=== PATIENT | female | born 1985 | race Caucasian/White ===

== ENCOUNTER → 2020-09-24 14:27 | Outpatient (CLI) | payer BC, SELFPAY ==
--- NOTE | ~2020-09-24 | US_ITS ---
EXAMINATION: US thyroid EXAM DATE: 09/24/2020 14:45 INDICATION: Goiter . TECHNIQUE: Multiple grayscale and Doppler images of the thyroid were obtained (by a technologist who performed the scan) and subsequently reviewed. Individual nodules and recommendations may be reporte d in accordance with TI-RADS system as designated by the 2017 ACR White Paper TI-RADS committee. The re is no prior study for comparison. FINDINGS: The right thyroid lobe measures 5.6 x 1.6 x 1.6 cm, the left measuring 3.8 x 1.2 x 1.5 cm, relatively homogeneous thyroid echogenicity with several small thyroid nodules. Largest definite thyroid nodule measures 1.1 x 0.5 x 0.8 cm and the right thyroid lobe midpole, solid (2 points), hypoechoic (2 points), wider than tall, smooth margin, without echogenic foci, category TR4 for this nodule. IMPRESSION: Mildly enlarged right thyroid lobe, with small nodule. Consider one-year follow-up thyroi d ultrasound. Reviewed, dictated and finalized at location A. OL ATHLETIC DIRECTOR IMPRESSION: Mildly enlarged right thyroid lobe, with small nodule. Consider one -year follow-up thyroid ultrasound.
== END ==
PROVIDERS: Visit Provider Internal Medicine Endocrinology, Diabetes & Metabolism
DX: E04.9 Nontoxic goiter, unspecified (principal)
CPT/HCPCS: 76536

== ENCOUNTER 2022-02-11 15:48 | Emergency (ER) | payer BC, SELFPAY ==
[2022-02-11 15:51] VITALS: BP 109/74; PULSE 106; RESP 18; TEMP 37.3; O2SAT 100
--- NOTE | 2022-02-11 17:34 | ECG_ITS ---
Measurements Intervals [place] Rate: 105 P: 67 MI: 168 QRS: 23 QRSD: 77 T: -8 QT: 315 QTc: 417 Interpretive Statements SINUS TACHYCARDIA POSSIBLE LEFT ATRIAL ENLARGEMENT [-0.1mV P WAVE IN V1/V2] NONSPECIFIC ST & T-WAVE ABNORMALITY ABNORMAL RHYTHM ECG NO PREVIOUS ECG AVAILABLE FOR COMPARISON Electronically Signed On 02-12-2022 11:21:22 CDT by Yaakov Boggs M.D.
--- NOTE | 2022-02-11 17:35 | ED.ALLEREA ---
HPI - Allergic Reaction General Chief complaint: Allergic Reaction Stated complaint: med reaction? Time Seen by Provider: 02/11/22 17:34 History of Present Illness HPI narrative: 37-year-old female presents the emergency room for evaluation of a possible allergic reaction to fertility medication she is taking. Patient states 2 days ago she was taking clomiphene, and yesterday started experiencing flushing, abdominal bloating, nausea, body aches, fever, weakness, headache, chest discomfort with palpitations, and shortness of breath. Patient states that she had a maximum temperature of 104. Patient states that she has not contacted her hand molder and caster regarding the side effects of the medication. Patient states her symptoms are less worse today but still remain. Related Data Allergies Allergy/AdvReac Type Severity Reaction Status Date / Time Penicillins Allergy Mild Rash Unverified 09/23/20 09:04 Review of Systems Review of Systems: CONSTITUTIONAL: Reports fever, chills, sweats, body aches EYES: Denies visual changes, redness, or discharge. ENT: Denies rhinorrhea, congestion, sore throat, or otalgia. CARDIOVASCULAR: Reports chest pain RESPIRATORY: Reports shortness of breath GASTROINTESTINAL: Reports abdominal cramping and nausea GENITOURINARY: Denies dysuria or hematuria. SKIN: Reports flushing skin MUSCULOSKELETAL: Denies back pain, joint pain, or myalgia. NEUROLOGIC: Reports headache PSYCHIATRIC: Denies anxiety or depression. Exam Narrative: GENERAL: Well-appearing, well-nourished, and in no acute distress. HEAD: Normocephalic, atraumatic. EYES: PERRLA and EOMI. ENT: Nares clear, no rhinorrhea or epistaxis. Mucous membranes moist. Oropharynx without tonsillar hypertrophy exudate or other lesions. CHEST: Clear to auscultation. No respiratory distress. No wheezes rales or rhonchi HEART: Regular rate and rhythm. No murmur heard. Normal peripheral pulses. ABDOMEN: Soft, nontender, nondistended, normal active bowel sounds. EXTREMITIES: Normal range of motion. No edema. SKIN: Warm, dry, no rash. NEURO: No focal deficits. Alert and oriented x3. PSYCH: Normal mood and affect. Course Vital Signs Vital signs: Vital Signs Temperature 37.3 C 02/11/22 15:51 Pulse Rate 106 H 02/11/22 15:51 Respiratory Rate 18 02/11/22 15:51 Blood Pressure 109/74 02/11/22 15:51 Pulse Oximetry 100 02/11/22 15:51 Temperature 37.3 C 02/11/22 15:51 Pulse Rate 106 H 02/11/22 15:51 Respiratory Rate 18 02/11/22 15:51 Blood Pressure 109/74 02/11/22 15:51 Pulse Oximetry 100 02/11/22 15:51 MDM - Allergic Reaction MDM Narrative Medical decision making narrative: 37-year-old female presented emergency room for evaluation of a possible adverse reaction to fertility medication patient states that she has been experiencing headache, fever, body aches, occasional chest pain with shortness of breath, bloating, nausea. Discussed with patient that her symptoms were likely caused by the fertility medication. Her EKG showed normal sinus rhythm with no acute changes. Recommended to patient that she just treat her symptoms. Differential Diagnosis Differential diagnosis: Likely allergic reaction and adverse reaction to drug ECG Data EKG #1: ECG completion date: 02/11/22 ECG completion time: 17:52 normal rate, sinus rhythm, normal QRS and no acute changes Discharge Plan Discharge Clinical Impression: Adverse reaction to drug, Nausea, Atypical chest pain Patient Disposition: Home, Self-Care Condition: Stable Instructions: Antibiotic Form Additional Instructions: Follow-up with your hand molder and caster on Monday. Take Zofran as indicated. Recommend taking Tylenol and ibuprofen for headaches, fever, and body aches. Prescriptions: New ondansetron 4 mg tablet,disintegrating 4 mg PO Q8H Qty: 10 RF: 0 Follow-up/Referrals: DERRICK,KEYSHAWN DON [Primary Care Provider] - Time of Disposition: 1
== END 2022-02-11 17:58 | disposition home or self-care (01) ==
LOC: ANHED 17:54
PROVIDERS: Emergency Provider Nurse Practitioner Family; PCP Nurse Practitioner Family
DX: R11.0 Nausea (principal); R07.89 Other chest pain; T38.5X5A Adverse effect of other estrogens and progestogens, initial encounter; R00.0 Tachycardia, unspecified; R94.31 Abnormal electrocardiogram [ECG] [EKG]
CPT/HCPCS: 93005; 99283

== ENCOUNTER 2022-02-16 11:47 | Outpatient (CLI) | payer BC, SELFPAY ==
--- NOTE | ~2022-02-16 | CT_ITS ---
EXAMINATION: CT abdomen pelvis w con DATE: 02/16/2022 12:40 INDICATION: Right lower quadrant abdominal pain. TECHNIQUE: Computed tomography (CT) of the abdomen and pelvis was performed with 100 mL Omnipaque 350 intravenous contrast. Automated exposure control and iterative reconstruction technique were employe d. The dose-length product was 414.84 mGy-cm. COMPARISON: Abdomen ultrasound 01/05/2005 FINDINGS: The visualized portions of the lung bases demonstrated mild atelectasis. No pleural effusio n. The heart size is normal. No pericardial effusion. There is a 9 mm cyst in the liver. The gallblad ayanna, spleen, pancreas, adrenal glands, and right kidney are normal. There are cysts in right kidney m easuring up to 12 mm. There are no dilated loops of bowel. The appendix is not visualized. There is a 3.5 cm cyst with rim hyper enhancement in right ovary, consistent with a corpus luteum cyst. There i s pelvic ascites measuring greater than simple fluid in attenuation. There are no pathologically enla rged lymph nodes. The bones are unremarkable. IMPRESSION: 1. 3.5 cm corpus luteum cyst in right ovary. 2. Small volume of pelvic ascites measuring greater than simple fluid in attenuation, which may be he moperitoneum from cyst rupture. Reviewed, dictated and finalized at location A. IMPRESSION: 1. 3.5 cm corpus luteum cyst in right ovary. 2. Small volume of pelvic ascites measuring greater than simple fluid in attenu ation, which may be hemoperitoneum from cyst rupture.
[2022-02-16 13:53] LABS: Hematocrit 39.1 % (37.0-47.0); Hemoglobin 12.2 g/dL (12.0-15.0); Mean Corpuscular HGB Conc 31.2 g/dl (32-36); Mean Corpuscular Hemoglobin 28.1 pg (26-34); Mean Corpuscular Volume 90.1 fl (80-100); Mean Platelet Volume 9.6 fl (7.4-10.4); Platelet Count Result 404 k/mm3 (150-375); Red Blood Count 4.34 M/mm3 (4.2-5.4); Red Cell Distribution Width 12.7 % (11.5-14.5); White Blood Count 24.7 K/mm3 (4.5-10.0)
[2022-02-16 13:55] LABS: Add Urine Microscopic? NO; Appearance Urine Clear (Clear); Bilirubin Urine Negative (Negative); Blood Urine Negative (Negative); Color Urine Straw (Yellow); Glucose Urine UA Negative (Negative); Ketones Urine Negative (Negative); Leukocyte Esterase Ur Negative LEU/UL (Negative); Nitrate Urine Negative (Negative); Protein Urine Negative (Negative); Urobilinogen Urine Negative mg/dL (<2.0)
[2022-02-16 14:02] LABS: Specific Grav Ur 1.058 (1.001-1.035)
[2022-02-16 14:08] LABS: Alanine Aminotransferase 26 U/L (4-35); Albumin Level 4.2 g/dL (3.5-5.1); Alkaline Phosphatase 141 U/L (38-126); Anion Gap 11 mmol/L (8-16); Aspartate Amino Transferase 28 U/L (14-36); Bilirubin,Total 0.3 mg/dL (0.2-1.3); Blood Urea Nitrogen 9 mg/dL (7-17); Calcium 8.7 mg/dL (8.4-10.2); Carbon Dioxide 25 mmol/L (22-30); Chloride 100 mmol/L (98-107); Estimated Glomerular Filt Rate > 60; Glucose 98 mg/dL (65-110); Potassium 3.7 mmol/L (3.4-5.0); Sodium 136 mmol/L (137-145)
[2022-02-16 14:27] LABS: Band Neutrophils Percent 2 % (0-6); Eosinophils Absolute Manual 0.24 K/mm3 (0.02-0.5); Eosinophils Percent Manual 1 % (0-4); Lymphocytes Absolute Manual 2.96 K/mm3 (1.1-4.5); Monocytes Absolute Manual 1.72 K/mm3 (0.1-0.90); Monocytes Percent Manual 7 % (3-9); Neutrophils Absolute Manual 19.76 K/mm3 (1.7-7.2); Neutrophils Percent Manual 78 % (46-73); Platelet Estimate Increased (Adequate); Total Cells Counted 100
[2022-02-16 14:28] LABS: Hypochromasia 1+ (NORMAL)
[2022-02-18 18:18] LABS: Lyme Disease Ab (IgM), Blot Negative (Negative); Lyme Disease Ab(IgG), Blot Negative (Negative)
== END 2022-02-16 11:48 | disposition home or self-care (01) ==
PROVIDERS: PCP Nurse Practitioner Family; Visit Provider Registered Nurse
DX: R10.31 Right lower quadrant pain (principal); N83.201 Unspecified ovarian cyst, right side; R18.8 Other ascites
CPT/HCPCS: 36415; 74177; 80053; 81003; 85025; 86617; Q9967

== ENCOUNTER 2022-02-17 20:01 | Observation (INO) | payer BC, SELFPAY ==
[2022-02-17 20:35] VITALS: BMI 27.2
[2022-02-17 20:45] VITALS: BP 117/71; PULSE 102; RESP 16; TEMP 36.8; O2SAT 100
[2022-02-17] MEDS: LACTATED RINGERS 1,000 ML 125 ML IV CONT (21:20)
--- NOTE | 2022-02-17 21:23 | ADMGEN ---
This patient, Fabienne Jones, was admitted to Medical Room 347-. Patient/family oriented to hospital policies and general routines including ID bracelet, bed and alarms, visiting hours, pain management, procedures, bathroom and other care routines, personal items, smoking policy, room service/diet, and visiting hours. Information on how to activate the Rapid Response Team has been discussed. Patient/Family are encouraged to report perceived risks to care and to ask questions if they do not understand what they are told or what they should do.
[2022-02-18 04:52] VITALS: BP 112/63; PULSE 95; RESP 16; TEMP 36.8; O2SAT 99
[2022-02-18] MEDS: LACTATED RINGERS 1,000 ML 125 ML IV CONT (05:15)
[2022-02-18] MEDS: metroNIDAZOLE 500 MG/ISO 100ML 500 MG/100 ML BAG 100 MG IVPB (05:15)
[2022-02-18] MEDS: ACETAMINOPHEN 500 MG TABLET 1000 MG PO (05:21)
--- NOTE | 2022-02-18 07:47 | PM.IMHP ---
H&P: HPI History of Present Illness Date/Time: 02/18/22 07:47 Chief Complaint: right ovarian cyst Narrative: Fabienne is a 37yo who was transferred from [place] with hemorrhagic right ovarian cyst. She reports 8 days ago started with generalized abdominal discomfort and intermittent fevers. would get better and worse in cycles over the last week. Had taken first 2 doses of clomid when it started so thought it was related to that. A lot of nausea, was not eating or drinking. No vomiting, some diarrhea. Fevers continued (subjectively, does not have thermometer). She went to ED yesterday with continued pain and fevers. Pain feels like menstrual cramps. She had fever 102.[address] [place] [address] there showed small hemoperitoneum. US showed minimal to moderate free fluid in pelvis and 4-5cm hemorrhagic right ovarian cyst. ALso had leukocytosis. She has been on antibiotics here since yesterday. Overnight she did very well. Only took tylenol once for a SILVER. NO vomiting, Is hungry asking for food. Review of Systems Review of Systems: All systems reviewed & are unremarkable except as noted in HPI and below [facility] Family History Family History Grandparent Diabetes mellitus Breast cancer Heart disease Colon cancer Mother Hypertension Social History Social History Smoking status: Never smoker Alcohol intake: never Substance use: never Spiritual care concerns: No Meds Home Medications and Allergies Home Medications Medication Instructions Recorded Confirmed Type ondansetron 4 mg PO Q8H #10 tablet 02/11/22 Rx metformin 500 mg PO BID 02/17/22 02/17/22 History Allergies Allergy/AdvReac Type Severity Reaction Status Date / Time Penicillins Allergy Mild Rash Verified 02/18/22 01:05 Vital Signs Vital Signs - 24 hr 02/17/22 20:45 02/18/22 04:52 Temperature 98.2 F 98.3 F Pulse Rate 102 H 95 Respiratory Rate 16 16 Blood Pressure 117/71 112/63 Pulse Oximetry 100 99 Exam Const: General: no acute distress Resp: Effort & Inspection: normal respiratory effort Auscultation: clear to auscultation bilaterally Cardio: Rate: regular rate Rhythm: regular rhythm GI: GI Palp: Yes Soft to palpation and Yes Other GI palpation findings present (nontender, no rebound or guarding.) Extrem: General: normal to inspection Assessment and Plan Assessment and plan (1) Right ovarian cyst: Code(s): N83.201 - Unspecified ovarian cyst, right side Status: Acute (2) Nausea: Code(s): R11.0 - Nausea Status: Acute (3) Leukocytosis: Code(s): D72.829 - Elevated white blood cell count, unspecified Status: Acute (4) Abdominal pain: Code(s): R10.9 - Unspecified abdominal pain Status: Acute Additional Plan s/p IV antibiotics, though do not suspect TOA based on imaging, clinical presentation. I suspect viral gastroenteritis that has been prevalent with hemorrhagic ovarian cyst at same time. afebrile since admission exam bengin cap IV, gen diet home if tolerates PO precautions given. PT to call today to schedule FU at office for monday or monday. Return to ED for severe pain.
--- NOTE | 2022-02-18 07:59 | P.DS_ITS ---
DS: Admitting Diagnosis Discharge Date 02/18/22 Admitting Diagnosis hemorrhagic right ovarian cyst, leukocytosis, fever DS: Discharge Diagnosis Discharge Diagnosis (1) Abdominal pain: Code(s): R10.9 - Unspecified abdominal pain Status: Acute (2) Leukocytosis: Code(s): D72.829 - Elevated white blood cell count, unspecified Status: Acute (3) Nausea: Code(s): R11.0 - Nausea Status: Acute (4) Right ovarian cyst: Code(s): N83.201 - Unspecified ovarian cyst, right side Status: Acute DS: Summary Hospital Course Reason for hospitalization: right ovarian cyst, pain, leukocytosis Hospital Course: Pt was transferred from [facility] with hemorrhagic right ovarian cyst and pain. She had moderate leukocytosis and one fever. She received antibiotics and never took more than tylenol for her pain. She was NPO overnight in case surgery was necessary, but her abdominal exam remained benign. She was given a PO challenge and DC home in stable condition. Status at Discharge Functional status at discharge: independent ambulation Time Spent with Patient Time attestation: Total time spent providing and/or coordinating discharge services: Time spent: Less than 30 minutes Exam Narrative: NAD abdomen soft and nontender Ext non tender, no edema Neck: Neck: supple and no JVD Thyroid: thyroid normal Resp: Effort & Inspection: normal respiratory effort Cardio: Rate: regular rate Rhythm: regular rhythm GI: GI Palp: Yes Soft to palpation Auscultation: normal bowel sounds Discharge Plan Discharge Attending physician on discharge: Annette Chris Discharging Clinician: Annette Chris Anticipated Discharge Date/Time: 02/18/22 07:57 Patient Disposition: Home, Self-Care Activity: pelvic rest Diet: regular Discharge Instructions: ibuprofen 600mg every 6 hours as needed return to ED for temp >102 or severe pain Follow up Dr. Brady or Dr Chris Monday or Monday. Patient Instructions: Antibiotic Form Stand Alone Forms: General Discharge Information Follow-up/Referrals: Annette Chris MD [Physician] - 1 Week Discharge Medications: Continued metformin 500 mg Tablet 500 mg PO BID RF: 0 ondansetron 4 mg tablet,disintegrating 4 mg PO Q8H Qty: 10 RF: 0 Date of admission: 02/17/22 19:27 Primary Care Provider: MAYRAFLORENCIA Admitting Provider: Mervat Brady Attending physician on admission: Mervat Brady Condition: Stable
[2022-02-18 08:36] LABS: Basophils Absolute Auto 0.1 K/mm3 (0.0-0.1); Basophils Percent Auto 0.4 % (0.2-1.2); Eosinophils Absolute Auto 0.2 K/mm3 (0-0.3); Hematocrit 29.5 % (37.0-47.0); Hemoglobin 9.7 g/dL (12.0-15.0); Immature Granulocyte Absolute 0.54 K/mm3 (0.00-0.031); Immature Granulocyte Percent A 2.6 % (0-0.5); Lymphocytes Absolute Auto 2.06 K/mm3 (0.9-3.2); Lymphocytes Percent Auto 9.9 % (18.3-44.2); Mean Corpuscular HGB Conc 32.9 g/dl (32-36); Mean Corpuscular Hemoglobin 28.2 pg (26-34); Mean Corpuscular Volume 85.8 fl (80-100); Mean Platelet Volume 9.1 fl (7.4-10.4); Monocytes Absolute Auto 1.3 K/mm3 (0.1-0.6); Monocytes Percent Auto 6.4 % (2.6-8.5); Neutrophils Absolute Auto 16.6 K/mm3 (1.3-6.7); Neutrophils Percent Auto 79.7 % (45.5-73.1); Platelet Count Result 390 k/mm3 (150-375); Red Blood Count 3.44 M/mm3 (4.2-5.4); White Blood Count 20.8 K/mm3 (4.5-10.0)
== END 2022-02-18 13:02 | disposition home or self-care (01) ==
PROVIDERS: Admitting Provider Obstetrics & Gynecology; PCP Nurse Practitioner Family; Visit Provider Obstetrics & Gynecology
DX: N83.201 Unspecified ovarian cyst, right side (principal); D72.829 Elevated white blood cell count, unspecified; R11.0 Nausea
CPT/HCPCS: 36415; 85025; 96361; 96365; A9270; G0378; G0379; J7120

== ENCOUNTER 2022-06-24 08:38 | Outpatient (RCR) | payer BC, SELFPAY | END 2022-09-20 23:59 | disposition home or self-care (01) | LOC: ANHLAB 08:38 | PROVIDERS: PCP Nurse Practitioner Family; Visit Provider Obstetrics & Gynecology | DX: Z87.59 Personal history of other complications of pregnancy, childbirth and the puerperium (principal) | CPT/HCPCS: 36415; 84702 ==

== ENCOUNTER 2022-06-25 11:50 | Emergency (ER) | payer BC, SELFPAY ==
[2022-06-25 11:59] VITALS: BP 137/72; PULSE 80; RESP 16; TEMP 36.5; O2SAT 100
--- NOTE | 2022-06-25 12:06 | ED.EXTPRO ---
HPI - Extremity Problem General Chief complaint: Extremity Injury, Upper Stated complaint: Left Two Middle Fingers Pain Time Seen by Provider: 06/25/22 12:07 History of Present Illness HPI Narrative: Fabienne Jackson is a 37-year-old female who is prediabetic comes to [facility] after a fall she is also in early . She fell last night while she was sweeping and fell onto the broom handle and has bruising across the third and fourth finger and they are both swollen she is able to make a fist with difficulty and states it is painful and able to wiggle and do movement without difficulty but she says she has a lot of pain there is no injury to her wrist or to the base of her thumb Related Data Home Medications Medication Instructions Recorded Confirmed metformin 500 mg tablet 500 mg PO BID 02/17/22 02/17/22 Allergies Allergy/AdvReac Type Severity Reaction Status Date / Time Penicillins Allergy Mild Rash Verified 02/18/22 01:05 Review of Systems Review of Systems: CONSTITUTIONAL: Denies fever, chills, sweats. EYES: Denies visual changes, redness, discharge. ENT: Denies rhinorrhea, congestion, sore throat, otalgia. CARDIOVASCULAR: Denies chest pain, palpitations, edema. RESPIRATORY: Denies dyspnea, wheezing, cough GASTROINTESTINAL: Denies abdominal pain, nausea, vomiting, diarrhea. GENITOURINARY: Denies dysuria, hematuria, abnormal discharge SKIN: Denies rash or itching. NEUROLOGIC: Denies numbness, or focal weakness. PSYCHIATRIC: Denies anxiety or depression. Right left hand. The left is left hand third and fourth finger bruising and swelling after fall last night PMFSH Past Medical History Medical History (Updated 06/25/22 @ 12:25 by Nuha Tobar CNP) PCOS (polycystic ovarian syndrome) Family History Family History Grandparent Diabetes mellitus Breast cancer Heart disease Colon cancer Mother Hypertension Social History Social History Smoking status: Never smoker Alcohol intake: never Substance use: never Spiritual care concerns: No Comments So she is on my nurse note Exam Narrative: GENERAL: This is a well-nourished, well-developed patient, in mild distress. HEAD: normocephalic, atraumatic. EYES: Gaze sclera clear/white. Vision is grossly intact. EARS: External ears normal, . Hearing grossly intact. NOSE: External nose normal without nasal discharge, nares without redness, no rhinorrhea. THROAT: Mucous membranes moist well that have left hand third and fourth finger bruising and swelling at proximal knuckles NECK: Neck supple, non-tender CARDIOVASCULAR: Regular rate and rhythm without murmurs, gallops, or rubs. RESPIRATORY: Clear to auscultation. Breath sounds equal bilaterally. No wheezes, rales, or rhonchi. GASTROINTESTINAL: Not done SKIN: warm, intact with no suspicious lesions or rash, good texture and turgor. NEURO: awake, alert, and oriented to person, place and time. There were no obvious focal neurologic abnormalities. Steady gait EXTREMITIES: Normal range of motion. BACK: Nontender without deformity Course Course Emergency Course: Patient here for evaluation of left fingers after fall last night, does not want to have an x-ray; evaluation about possible fracture without using x-ray. Able to move fingers, fingers 3 and 4 of L hand Placed in splint- RICE, Tylenol Level of Care: [facility] Vital Signs Vital signs: Vital Signs Temperature 97.7 F 06/25/22 11:59 Pulse Rate 80 06/25/22 11:59 Respiratory Rate 16 06/25/22 11:59 Blood Pressure 137/72 06/25/22 11:59 Pulse Oximetry 100 06/25/22 11:59 Oxygen Delivery Room Air 06/25/22 11:59 Temperature 97.7 F 06/25/22 11:59 Pulse Rate 80 06/25/22 11:59 Respiratory Rate 16 06/25/22 11:59 Blood Pressure 137/72 06/25/22 11:59 Pulse Oximetry 100 06/25/22 11:59 Oxygen D
== END 2022-06-25 12:28 | disposition home or self-care (01) ==
PROVIDERS: Emergency Provider Nurse Practitioner; PCP Nurse Practitioner Family
DX: O9A.211 Injury, poisoning and certain other consequences of external causes complicating pregnancy, first trimester (principal); Z3A.00 Weeks of gestation of pregnancy not specified; S60.032A Contusion of left middle finger without damage to nail, initial encounter; S60.022A Contusion of left index finger without damage to nail, initial encounter; W19.XXXA Unspecified fall, initial encounter; O90.89 Other complications of the puerperium, not elsewhere classified; E28.2 Polycystic ovarian syndrome
CPT/HCPCS: 29130; 99212; G0463

== ENCOUNTER 2022-08-10 10:58 | Outpatient (CLI) | payer BC, SELFPAY ==
[2022-08-11] MEDS: RHO(D) IMMUNE GLOBULIN 300 MCG/2 ML SYRINGE IM (16:03)
== END 2022-08-10 10:59 | disposition home or self-care (01) ==
PROVIDERS: PCP Nurse Practitioner Family; Visit Provider Obstetrics & Gynecology
DX: O36.0111 Maternal care for anti-D [Rh] antibodies, first trimester, fetus 1 (principal); O26.859 Spotting complicating pregnancy, unspecified trimester; Z3A.00 Weeks of gestation of pregnancy not specified
CPT/HCPCS: 36415; 85461; 90384; 96372; J2790

== ENCOUNTER 2025-05-23 12:51 | Emergency (ER) | payer BC, SELFPAY ==
--- OUTSIDE RECORDS SUMMARY | 2025-05-23 12:54 | XMS_ITS | Encounter Summary ---
Author Organization [facility] Address [facility] [place] [address] Care Team Providers Care Braille Translator Name Role Phone Cathryn Martinez Primary Care Provider [phone] Encounter Details Date Type Department Care Team (Late st Contact Info) Description 04/02/2025 Results Follow-Up [facility] Family & Internal Medicine [facility] [address] [place] [address] Cathryn Martinez FNP [address] [place] [address] TSH W/REFLEX, VITAMIN D, 25 OH, URIC ACID BLOOD, Additional followed-up results: 10 Social History Tobacco Use Types Packs/Day Years Used Date Smoking Tobacco: Never Passive Smoke Exposure: Never Smokeless Tobacco: Never Alcohol Use Standard Drinks/Week Comments Yes 0 (1 standard drink = 0.6 oz pur e alcohol) once or twice a month AUDIT-C Answer Date Recorded Frequency of Alcohol Consumption Never 04/08/2019 Average Number of Drinks Not on file 019 Frequency of Binge Drinking Not on file 03/23 PHQ-2 Answer Date Recorded Patient Health Questionnaire-2 Score 0 11/30/2023 Comments No Sex and Gender Information Value Date Recorded Sex Assigned at Female 05/09/2025 1:48 PM CDT Legal Sex Female 7:52 AM CDT Gender Identity Not on file Sexual Orientation Not on file documented as of this encounter Progress Notes * ALICJA Juarez - 04/02/2025 9:58 AM CDT Labs show that her hormone levels look good She should continue her vitamin D supplementing Her iron levels look good Her thyroid levels look good Her other labs look good documented in this encounter Plan of Treatment Not on file documented as of this encounter Visit Diagnoses Not on filedocumented in this encounter Additional Health Concerns Infection Onset Date Last Indicated Resolved Time Respiratory Rule Out 05/09/2025 05/09/2025 025 3:05 PM CDT Assessment Noted Time PHQ-9 Depression Total Score: 4 11/30/19 24 4:08 PM CLERK MANAGER documented as of this encounter Care Teams Braille Translator Relationship Specialty Start Date End Date Cathryn Martinez FNP [address] [place] [id number] PCP - General Nurse Practitioner Family 04/08/19 documented as of this encounter
--- OUTSIDE RECORDS SUMMARY | 2025-05-23 12:54 | XMS_ITS | Encounter Summary ---
Author Organization [facility] Address [address] [place] [address] Care Team Providers Care Rn Renal Name Role Phone Marissa Mancia MD Primary Care Provider Encounter Details Date Type Department Care Team (Late st Contact Info) Description 05/04/1999 Outpatient Historical [facility] [place] [address] [address] Annette Quinones MD [address] [address] Social History Tobacco Use Types Packs/Day Years Used Date Smoking Tobacco: Never Assessed Comments Unknown Sex and Gender Information Value Date Recorded Sex Assigned at Not on file Legal 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
--- OUTSIDE RECORDS SUMMARY | 2025-05-23 12:54 | XMS_ITS | Clinical Summary ---
Author Organization [facility] Address [address] [place] [address] Care Team Providers Care Dressmaker Garment Fitter Name Role Phone Cathryn Matrinez ALICJA Primary Care Provider [phone] Allergies Active Allergy Reactions Criticality Noted Date Comments Penicillins Rash Low 10/31/2012 Medications multi vitamin/minerals tablet Take 1 tablet by mouth daily. Active estradiol (VIVELLE-DOT) 0.0375 mg/24hr patch APPLY 1 PATCH TRANSDERMALLY TWICE A WEEK 08/12/20 24 Active progesterone (PROMETRIUM) 100 MG capsule Take 1 capsule (100 mg total) by mouth daily. 09/10/20 24 Active metFORMIN ER (GLUCOPHAGE-XR) 500 MG 24 hr tabletIndications :Polycystic ovary syndrome TAKE 1 TABLET BY MOUTH EVERY DAY WITH BREAKFAST 90 tablet 12/06/19 25 Active lisdexamfetamine (VYVANSE) 50 MG capsuleIndication s:Attention deficit hyperactivity disorder (ADHD), predominantly inattentive type Take 1 capsule (50 mg total) by mouth every morning. 30 capsule 05/19/20 25 Active fluconazole (DIFLUCAN) 150 MG tabletIndications :Vaginal yeast infection Take one tablet now and you may repeat one tablet 72 hours for continued symptoms 2 tablet 09/23/20 24 025 Discontin ued(Thera py completed ) lisdexamfetamine (VYVANSE) 50 MG capsuleIndication s:Attention deficit hyperactivity disorder (ADHD), predominantly inattentive type Take 1 capsule (50 mg total) by mouth every morning. 30 capsule 04/21/20 25 025 Discontin ued(Reord er) Active Problems Problem Noted Date Diagnosed Date Hormone replacement therapy (HRT) 09/23/2024 Leiomyoma 09/13/2023 Overview (09/13/2023): growth growth History of Lyme disease 04/05/2023 Anemia 11/17/2022 Overview (09/13/2023): 1 tab twice a day slowfe Attention deficit hyperactiv ity disorder (ADHD), predominantly inattentive type 04/29/2022 Polycystic ovary syndrome 02/11/2022 Primary insomnia 07/06/2020 Mixed hyperlipidemia 07/06/2020 Influenza vaccination declined by patient 2019 Tick bite of abdomen, initial encounter 05/24/20 19 Frequent headaches 05/24/2019 Fatigue, unspecified type 04/08/2019 Dysmenorrhea 04/08/2019 PMDD (premenstrual dysphoric disorder) 9 Vitamin D deficiency 04/08/2019 History of stillbirth 04/08/2019 Overweight with body mass in dex (BMI) of 25 to 25.9 in adult 04/08/2019 Resolved Problems Problem Noted Date Diagnosed Date Resolved Date Polyarthralgia 07/06/2020 05/09/2025 Generalized body aches 05/24/201905/09 Arthralgia of both hands 05/24/2019 Thinning hair 04/08/2019 05/09/2025 Cold intolerance 04/08/2019 05/09/2025 Mood swings 04/08/2019 05/09/2025 History of urinary urgency 04/08/2019 0 05/09/2025 Encounters Date Type Department Care Team Description 05/09/2025 1:40 PM CDT Office Visit [facility] Medical [facility] Family & Internal Medicine [address] [address] Cathryn Martinez FNP Attention Deficit Hyperactivity Disorder (Patient presenting to office for 6 month f/u for ADHD ); URI (Dry cough, sore throat, SILVER, sinus pressure onset 3 days total but hit harder today ) 05/09/2025 Travel 04/02/2025 Results Follow-Up [facility] Family & Internal Medicine [address] [address] Cathryn Martinez FNP TSH W/REFLEX, VITAMIN D, 25 OH, URIC ACID BLOOD, Additional followed-up results: 10 03/25/2025 1:20 PM CDT Laboratory Only [facility] Medical Group Family & Internal Medicine [address] [address] Cathryn Martinez FNP 03/25/2025 - 03/25/2025 11:59 PM CDT [facility] [address] [place] [address] Cathryn Martinez FNP Discharge Disposition: Home or Self Care (Routine Discharge) 03/25/2025 Travel from Last 3 Months Family History Medical History Relation Comments Arthritis Father Diabetes Maternal Grandfather Heart Disease Maternal Grandfather Hypertension Mother Diabetes Paternal Grandfather Heart Disease Paternal Grandfather Cancer Paternal Grandmother breast Diabetes Paternal Grandmother Heart Disease Paternal Grandmother Relation Status Comments Father Maternal Grandfather Mother Paternal Grandfather Paternal Grandmother Social History Tobacco Use Types Packs/Day Years Used Date Smoking Tobacco: Never Passive Smoke Exposure: Never Smokeless Tobacco: Never Tobacco Cessation:Counseling Given: No Alcohol Use Standard Drinks/Week Comments Yes 0 (1 standard drink = 0.6 oz pur e alcohol) once or twice a month AUDIT-C Answer Date Recorded Frequency of Alcohol Consumption Never 04/08/2019 Average Number of Drinks Not on file 019 Frequency of Binge Drinking Not on file 03/23 PHQ-2 Answer Date Recorded Patient Health Questionnaire-2 Score 0 05/09/2025 Comments No Sex and Gender Information Value Date Recorded Sex Assigned at Female 05/09/2025 1:48 PM CDT Legal Sex Female 7:52 AM CDT Gender Identity Not on file Sexual Orientation Not on file Last Filed Vital Signs Vital Sign Reading Time Taken Comments Blood Pressure 130/78 05/09/2025 1:50 PM CDT Pulse 113 05/09/2025 1:50 PM CDT Temperature 36.9 C (98.4 F) 05/09/2025 1:50 PM CDT Respiratory Rate 18 05/09/2025 1:50 PM CDT Oxygen Saturation 98% 05/09/2025 1:50 PM CDT Inhaled Oxygen Concentration - - Weight 61.8 kg (136 lb 4.8 oz) 05/09/2025 1:50 P M CDT Height 154.9 cm (5' 1) 05/09/2025 1:50 PM CDT Body Mass Index 25.75 05/09/2025 1:50 PM CDT Plan of Treatment Health Maintenance Due Date Last Done Comments Annual Physical 01/14/1987 HPV Vaccines (1 - 3-dose SCD M series) 01/14/2011 Hepatitis B Vaccines (1 of 3 - 19+ 3-dose series) 06/09/2025 Postponed from 12/22 (Future Appointment) Cervical Cancer Screening Pa p Smear (Age 30 to 64) Every 3 Years 07/12/2025 07/12/2022, 04/19/2022 COVID-19 Vaccine (2023-2 5 season) 2025 Postponed from 06/23 (Patient Refused) DTaP, Tdap and Td Vaccines ( 1 - Tdap) 05/09/2026 Postponed from 01/14 (Patient Refused) Mammogram Screening 05/09/2026 Postpone d from 2024 (Patient Refused) Cervical Cancer Screening Pa p with HPV Testing (Age 30 to 64) Every 5 Years 07/12/2027 07/12/2022 Cervical Cancer Screening with HPV 07/12/2027 Hepatitis C Completed 08/02/2022, 08/02/2022 PHQ-2 (Physician [place]) Completed 05/09/2025 Meningococcal B Vaccine Aged Out No l onger eligible based on patient's age to complete this topic Meningococcal Vaccine Aged Out No dima arabella eligible based on patient's age to complete this topic Pneumococcal Vaccine: Pediatrics (0 to 5 Years) and At-Risk Patients (6 to 49 Years) Aged Out No longer eligible b ased on patient's age to complete this topic RSV Immunizations Under 20 Months Aged Out No longer eligible b ased on patient's age to complete this topic Procedures Procedure Name Priority Date/Time Associated Diagnosis Comments CORONAVIRUS (COVID-19) INFLUENZA A & B ANTIGEN IA PANEL Routine 05/09/2025 3:05 PM CDT Sorethroat Acute cough Acute nonintractable headache, unspecified headache type MG/PCCL UDS W CONF Routine 05/09/2025 1: 55 PM CDT Attention deficit hyperactivity disorder (ADHD), predominantly inattentive type Encounter for long-term (current) drug use High risk medication use TESTOSTERONE, FREE & TOTAL Routine 03/25/2025 3:17 PM CDT Polycystic ovary syndrome FERRITIN Routine 03/25/2025 3:17 PM CDT Iron deficiency anemia secondary to inadequate dietary iron intake IRON SAT PANEL (IRON,IBC,%SAT) Routine 03/25/2025 3:17 PM CDT Iron deficiency anemia secondary to inadequate dietary iron intake FSH, FOLLICLE STIM HORMONE Routine 03/25/2025 3:17 PM CDT Hormone replacement therapy (HRT) Polycystic ovary syndrome MAGNESIUM Routine 03/25/2025 3:17 PM CDT Attention deficit hyperactivity disorder (ADHD), predominantly inattentive type FOLIC ACID SERUM Routine 03/25/2025 3:17 PM CDT Iron deficiency anemia secondary to inadequate dietary iron intake Attention deficit hyperactivity disorder (ADHD), predominantly inattentive type VITAMIN B-12 Routine 03/25/2025 3:17 PM CDT Iron deficiency anemia secondary to inadequate dietary iron intake Attention deficit hyperactivity disorder (ADHD), predominantly inattentive type PROGESTERONE Routine 03/25/2025 3:17 PM CDT Hormone replacement therapy (HRT) ESTRADIOL Routine 03/25/2025 3:17 PM CDT Hormone replacement therapy (HRT) COMPREHENSIVE METABOLIC PANEL Routine 03/25/2025 3:17 PM CDT Mixed hyperlipidemia URIC ACID BLOOD Routine 03/25/2025 3:17 PM CDT Mixed hyperlipidemia VITAMIN D, 25 OH Routine 03/25/2025 3:17 PM CDT Vitamin D deficiency TSH W/REFLEX Routine 03/25/2025 3:17 PM CDT Mixed hyperlipidemia Thinning hair COLLECTION VENOUS BLOOD VENIPUNCTURE Routine 03/25/2025 3:04 PM CDT Iron deficiency anemia secondary to inadequate dietary iron intake Hormone replacement therapy (HRT) Polycystic ovary syndrome Attention deficit hyperactivity disorder (ADHD), predominantly inattentive type Mixed hyperlipidemia Vitamin D deficiency Thinning hair from Last 3 Months Results * CORONAVIRUS (COVID-19) INFLUENZA A & B ANTIGEN IA PANEL (05/09/2025 3:05 PM CDT) CORONAVIRUS ANTIGEN IA NEGATIVE NEGATIVE [facility] INFLUENZA A NEGATIVE NEGATIVE [facility] INFLUENZA B NEGATIVE NEGATIVE [facility] Internal Control: VALID VALID [facility] NASAL STRUCTURE / Unknown 05/09/2025 3:05 PM CDT Cathryn MCDERMOTTP MICROBIOLOGY - GENERAL ORDERAB LES Final Result Performing Organization Address City/State/[facility] Co de Phone Number [facility] [address] [place] [address], * (ABNORMAL) MG/PCCL UDS W CONF (05/09/2025 1:55 PM CDT) RESULT SUMMARY [facility] Comment: Prescribed Prescribed Not Prescribed Consistent Inconsistent Inconsistent Vyvanse(TM) PRESCRIBED DRUG 1 (U) Vyvanse(TM) [facility] FENTANYL SCREEN (U) NEGATIVE <0.5 ng/mL [facility] [employer] [facility] MORPHINE (U) NEGATIVE <10 ng/mL [facility] [employer] [facility] DESMETHYLTRAMADOL (U) NEGATIVE <100 ng/mL [facility] [employer] [facility] TRAMADOL (U) NEGATIVE <100 ng/mL [facility] [employer] [facility] TRAMADOL COMMENTS [facility] Comment:See LDT Notes AMPHETAMINES PM POSITIVE(A) <500 ng/mL [facility] AMPHETAMINES PM CONFIRMATION (U) 1,639(H) <250 ng/mL [facility] AMPHETAMINES PM MEDMATCH CONF (U) CONSISTENT [facility] METHAMPHETAMINE PM (U) NEGATIVE <250 ng/mL [facility] GUILLENE AMPHETAMINES COMMENT [facility] [place] [facility] Comment:See Amphetamines Not es, LDT Notes BARBITURATES PM (U) NEGATIVE <300 ng/mL [facility] BENZODIAZEPINES PM (U) NEGATIVE <100 ng/mL [facility] GUILL[facility] COCAINE METABOLITE PM (U) NEGATIVE <150 ng/mL [facility] [employer] KARAN MARIJUANA METABOLITE PM (U) NEGATIVE <20 ng/mL [facility] GUILL[facility] METHADONE PM (U) NEGATIVE <100 ng/mL [facility] OPIATES PM (U) NEGATIVE <100 ng/mL [facility] OXYCODONE PM (U) NEGATIVE <100 ng/mL [facility] CREATININE RANDOM (U) 68.2 > or = 20.0 mg/dL [facility] pH PM (U) 7.4 4.5 - 9.0 [facility] OXIDANT NEGATIVE <200 mcg/mL [employer] [facility] GUILLENE NOTE [employer] Comment: This drug testing is for medical treatment only. Analysis was performed as non-forensic testing and these results should be used only by healthcare providers to render diagnosis or treatment, or to monitor progress of medical conditions. Amphetamines Notes: Amphetamine detected is consistent with the use of the drug Amphetamine. Amphetamine can be a prescribed drug and is also a metabolite of methamphetamine. LDT Notes: Confirmation tests were developed and their analytical performance characteristics have been determined by [employer]. It has not been cleared or approved by the FDA. This assay has been validated pursuant to the CLIA regulations and is used for clinical purposes. medMATCH(R) enables providers to identify if drug use is consistent or inconsistent with a corresponding prescribed medication(s) list. Healthcare Providers needing Interpretation assistance, please contact us at [phone] ( ) M-F, 8am to 10pm EST URINE SPECIMEN / Unknown 05/09/2025 1:55 PM CDT 05/10/2025 12:53 AM CDT Narrative Resulting Agency Comment Performing Organization Information: Site ID: [id number] [facility]: [facility] Address: [address] [place] [address] [place] [address] Director: Ari House Site ID: [id number] Name: [facility] Address: [address] [facility] [place] [address] Director: Lucie Harris MD Cathryn MCDERMOTTP URINE ORDERABLES Final Result [facility] [address] [place] [address], [facility] OSTR[facility] [place] [address] * TSH W/REFLEX (03/25/2025 3:17 PM CDT) TSH 1.276 0.358 - 3.740 uIU/ML 03/26/2025 1:35 PM CDT [facility] 03/25/2025 3:17 PM CDT Cathryn Bainzer TECHNICIAN [employer] [facility] [facility] Final Result Performing Organization Address [facility] de Phone Number [facility] [address] [place] [address], * IRON SAT PANEL (IRON,IBC,%SAT) (03/25/2025 3:17 PM CDT) IRON 74 50 - 170 MCG/DL 03/26/2025 1:35 PM CDT [facility] IRON BINDING CAPACITY 364 250 - 450 MCG/DL 03/26/2025 1:35 PM CDT [facility] IRON SATURATION 20 % 1:35 PM CDT [facility] Comment:REFERENCE RANGE NOT ESTABLISHED 03/25/2025 3:17 PM CDT Cathryn Odellzer TECHNICIAN [facility] [facility] Final Result Performing Organization Address City/[facility]/ZIP Co de Phone Number [facility] [address] [place] [address], * (ABNORMAL) VITAMIN B-12 (03/25/2025 3:17 PM CDT) [facility] VITAMIN B12 S/P/B 1,791(H) 193 - 986 PG/ML 03/26/2025 1:35 PM CDT [facility] 03/25/2025 3:17 PM CDT Cathryn Martinez [facility] Final Result [address] [address], * TESTOSTERONE, FREE & TOTAL (03/25/2025 3:17 PM CDT) [facility] TESTOSTERONE TOTAL 25 2 - 45 ng/dL [facility] Comment: For additional information, please refer to https://education.[employer]/faq/DRQ909 (This link is being provided for informational/educational purposes only.) (Note) This test was developed and its analytical performance characteristics have been determined by [employer]. It has not been cleared or approved by the FDA. This assay has been validated pursuant to the CLIA regulations and is used for clinical purposes. TESTOSTERONE FREE 2.8 0.1 - 6.4 pg/mL [facility] Comment: (Note) This test was developed and its analytical performance characteristics have been determined by [employer]. It has not been cleared or approved by the FDA. This assay has been validated pursuant to the CLIA regulations and is used for clinical purposes. [facility] [address] [address],[address] [facility] [address] Yehuda Louise MD, PhD 03/25/2025 3:17 PM CDT 03/27/2025 5:22 AM CDT Narrative Resulting Agency Comment Performing Organization Information: Site ID: [id number] Name: [facility] Address: [address] [place] [address] [address], [address] [place] [address] Director: Yehuda Louise MD,PhD Cathryn Martinez [facility] Final Result [facility] [address] [facility] [address], [address] [place] [address], * (ABNORMAL) COMPREHENSIVE METABOLIC PANEL (03/25/2025 3:17 PM CDT) [facility] SODIUM S/P/B 139 136 - 145 MMOL/L 03/26/2025 1:35 PM CDT [facility] POTASSIUM S/P/B 3.9 3.5 - 5.1 MMOL/L 03/26/2025 1:35 PM CDT [facility] CHLORIDE S/P/B 103 98 - 107 MMOL/L 03/26/2025 1:35 PM CDT [facility] CO2 25.9 21 - 32 MMOL/L 03/26/2025 1:35 PM CDT [facility] GLUCOSE 100(H) 70 - 99 MG/DL 03/26/2025 1:35 PM CDT [facility] BUN 15 7 - 18 MG/DL 03/26/2025 1:35 PM CDT [facility] CREATININE S/P/B 0.61 0.55 - 1.02 MG/DL 03/26/2025 1:35 PM CDT [facility] CALCIUM S/P/B 9.1 8.4 - 10.5 MG/DL 03/26/2025 1:35 PM CDT [facility] BILIRUBIN TOTAL S/P/B 0.2 0.2 - 1.0 MG/DL 03/26/2025 1:35 PM CDT [facility] ALKALINE PHOSPHATASE S/P/B 101(H) 37 - 98 U/L 03/26/2025 1:35 PM CDT [facility] AST 17 15 - 37 U/L 03/26/2025 1:35 PM CDT [facility] ALT 22 14 - 59 U/L 03/26/2025 1:35 PM CDT [facility] TOTAL PROTEIN S/P/B 7.1 6.4 - 8.2 G/DL 03/26/2025 1:35 PM T [facility] ALBUMIN S/P/B 3.8 3.4 - 5.0 G/DL 03/26/2025 1:35 PM CDT [facility] ANION GAP 10.1 5 - 15 MMOL/L 03/26/2025 1:35 PM CDT [facility] Comment:REFERENCE RANGE NOT ESTABLISHED OSMOLALITY (CALC) 289 MOSM/KG 025 1:35 PM T [facility] Comment:REFERENCE RANGE NOT ESTABLISHED GFR ESTIMATE >90 >90 ML/MIN/1. 73 M2 03/26/2025 1:35 PM CDT [facility] GFR NOTES GFR REFERENCE S: 03/26/2025 1:35 PM CDT [facility] Comment: THE ESTIMATED GFR IS CALCULATED USING THE 2020 CKD-EPI EQUATION. THE FOLLOWING CATEGORIES FOR GRADING RENAL FUNCTION ARE RECOMMENDED BY THE INTERNATIONAL SOCIETY OF NEPHROLOGY (KDIGO 2012 CLINICAL PRACTICE GUIDELINE). G1,NORMAL OR HIGH: >89 ml/min/1.73 m2 G2,MILDLY DECREASED: 60-89 ml/min/1.73 m2 G3A,MILDLY TO MODERATELY DECREASED: 45-59 ml/min/1.73 m2 G3B,MODERATELY TO SEVERELY DECREASED: 30-44 ml/min/1.73 m2 G4,SEVERELY DECREASED: 15-29 ml/min/1.73 m2 G5,KIDNEY FAILURE: <15 ml/min/1.73 m2 03/25/2025 3:17 PM CDT Cathryn Martinez TECHNICIAN [facility] [facility] Final Result [facility] [address] [place] [address], [place] [phone] * FSH, FOLLICLE STIM HORMONE (03/25/2025 3:17 PM CDT) FSH 4.2 MIU/ML 03/25/2025 9:21 PM CDT [facility] Comment: FOLLIC PHASE: 2.3 TO 12.6 mIU/mL MID CYCLE: 5.2 TO 17.5 mIU/mL LUTEAL PHASE: 1.7 TO 12.9 mIU/mL POST MENOPAUSAL NOT ON THERAPY: 12.7 TO 132.2 mIU/mL ASSAY PERFORMED BY CHEMILUMINESCENCE METHODOLOGY USING SIEMENS DIMENSION VISTA REAGENT. PATIENT RESULTS DETERMINED BY ASSAYS USING DIFFERENT MANUFACTURERS FOR METHODS MAY NOT BE COMPARABLE. 03/25/2025 3:17 PM CDT Cathryn Martinez [facility] Final Result Performing Organization Address [facility] de Phone Number [facility] [address] [place] [address], [id number] * ESTRADIOL (03/25/2025 3:17 PM CDT) ESTRADIOL 65 PG/ML 03/25/2025 9:21 PM CDT [facility] Comment: AGE 0 TO 10 YEARS: <11 TO 20 pg/mL FOLLIC PHASE: 21 TO 165 pg/mL MID CYCLE: 50 TO 367 pg/mL LUTEAL PHASE: 40 TO 259 pg/mL POST MENOPAUSAL NOT ON HRT: <11 TO 58 pg/mL POST MENOPAUSAL ON HRT: <11 TO 462 pg/mL ASSAY PERFORMED BY CHEMILUMINESCENCE METHODOLOGY USING SIEMENS D[employer] [place]ISTA REAGENT. PATIENT RESULTS DETERMINED BY ASSAYS USING DIFFERENT MANUFACTURERS FOR METHODS MAY NOT BE COMPARABLE. 03/25/2025 3:17 PM CDT Cathryn Martinez [facility] Final Result Performing Organization Address [facility]/ZIP Co de Phone Number [facility] [address] [place] [address], [id number] * FOLIC ACID SERUM (03/25/2025 3:17 PM CDT) FOLATE >20.0 8.6 - 58.9 NG/ML 03/25/2025 8:11 PM CDT [facility] 03/25/2025 3:17 PM CDT [facility]AT[facility] Final Result [facility] [address] [place] [address], * PROGESTERONE (03/25/2025 3:17 PM CDT) Pathologist [facility] PROGESTERONE 2.6 NG/ML 03/25/2025 9:21 PM CDT [facility] Comment: FOLLIC PHASE: 0.2 TO 1.7 ng/mL LUTEAL PHASE: 2.3 TO 24.2 ng/mL POST MENAPAUSAL: <0.2 TO 0.9 ng/mL 1ST TRIMESTER: 11.4 TO 41.0 ng/mL 2ND TRIMESTER: 13.9 TO 156.0 ng/mL 3RD TRIMESTER: 51.4 TO >200.0 ASSAY PERFORMED BY CHEMILUMINESCENCE METHODOLOGY USING SIEMENS DIMENSION VISTA REAGENT. PATIENT RESULTS DETERMINED BY ASSAYS USING DIFFERENT MANUFACTURERS FOR METHODS MAY NOT BE COMPARABLE. 03/25/2025 3:17 PM CDT [facility] Final Result [facility] [address] [place] [address], [id number] * VITAMIN D, 25 OH (03/25/2025 3:17 PM CDT) VITAMIN D 25 HYDROXY TOTAL S/P/B 56.6 30 - 100 NG/ML 03/26/2025 1:35 PM CDT [facility] Comment: DEFICIENT <20 INSUFFICIENT 20-30 SUFFICIENT 30-100 03/25/2025 3:17 PM CDT Cathryn Martinez [facility] Final Result Performing Organization Address [facility] Co de Phone Number [facility] [address] [place] [address], * MAGNESIUM (03/25/2025 3:17 PM CDT) MAGNESIUM 2.0 1.8 - 2.4 MG/DL 03/26/2025 1:35 PM CDT [facility] 03/25/2025 3:17 PM CDT Cathryn Martinez [facility] Final Result Performing Organization Address [facility] Co de Phone Number [phone] [place] [address], * FERRITIN (03/25/2025 3:17 PM CDT) FERRITIN 29.0 8 - 252 NG/ML 03/26/2025 1:35 PM CDT [facility] 03/25/2025 3:17 PM CDT [facility] Final Result Performing Organization Address [facility] de Phone Number [address] [address], * URIC ACID BLOOD (03/25/2025 3:17 PM CDT) URIC ACID 2.8 2.6 - 6.0 MG/DL 03/25/2025 7:54 PM CDT [facility] 03/25/2025 3:17 PM CDT us Cathryn HELM LAB[facility] Final Result [facility] [address] [place] [address], [place] [phone] from Last 3 Months Insurance [facility] Care Teams Dressmaker Garment Fitter Relationship Specialty Start Date End Date Cathryn Martinez FNP [address] [place] [id number] PCP - General Nurse Practitioner Family 04/08/19
--- OUTSIDE RECORDS SUMMARY | 2025-05-23 12:54 | XMS_ITS | Encounter Summary ---
Author Organization [employer] Address 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
--- OUTSIDE RECORDS SUMMARY | 2025-05-23 12:54 | XMS_ITS | Clinical Summary ---
Author Organization [employer] [address] - [address] [place] [address] Phone Care Team Providers Care Industrial Engineering Analyst Name Role Phone Marissa Mancia MD Primary Care Provider Allergies Active Allergy Reactions Criticality Noted Date Comments Penicillins Rash Low 06/09/2016 As a baby Medications Vit [id number] (ADVANCED ) 90-1-50 mg Tablet Take 1 Tablet by mouth daily. Active IRON ORAL Take by mouth. Active L. acidophilus/L. rhamnosus (PROBIOTIC ORAL) Take by mouth. Active calcium/magnesiu m (CALCIUM AND MAGNESIUM ORAL) Take by mouth. Active cholecalciferol, vitamin D3, (VITAMIN D3 ORAL) Take by mouth. Active Active Problems Problem Noted Date Diagnosed Date Multigravida of advanced maternal age in third t rimester 12/21/2022 Supervision [facility] normal [facility] 06/09/2016 Immunizations Immunization Administration Dates Next Due Rho (D) IMMUNE GLOBULIN 1,500 UNIT(300 MCG) INJE CTION 08/24/2016,07/07/2016 Family History Medical History Relation Name Comments Diabetes Maternal Grandfather Diabetes Maternal Grandmother Hypertension Mother Colon Cancer Paternal Grandfather Breast Cancer Paternal Grandmother Other Son 1 Potter Syndrome . 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 Gender Identity Not on file Sexual Orientation Not on file Last Filed Vital Signs Vital Sign Reading Time Taken Comments Blood Pressure 124/82 03/21/2023 11:22 AM CDT Pulse 72 03/21/2023 11:22 AM CDT Temperature 36.5 C (97.7 F) 02/11/2023 3:57 PM CDT Respiratory Rate 18 02/11/2023 3:57 PM CDT Oxygen Saturation 99% 02/10/2023 9:50 PM CDT Inhaled Oxygen Concentration - - Weight 75.9 kg (167 lb 6.4 oz) 03/21/2023 11:22 AM CDT Height 157.5 cm (5' 2) 03/21/2023 11:22 AM CDT Body Mass Index 30.62 03/21/2023 11:22 AM CDT Plan of Treatment Health Maintenance Due Date Last Done Comments HPV VACCINES (1 - 3-dose series) 01/14/1999 DTAP/TDAP/TD VACCINES (1 - Tdap) 01/14/2003 HEPATITIS B VACCINES (1 of 3 - 19+ 3-dose series) 12/22 HPV/Cotest (21-29) 01/14/2005 CERVICAL CANCER SCREENING 01/14/2014 HPV/Cotest (30-65) 01/14/2014 PAP SMEAR 01/14/2014 BREAST CANCER SCREENING 2024 INFLUENZA VACCINE (#1) 2025 Advance Directives For more information, please contact: [phone] * Full Code (Latest Code Status on File) Date Activated Date Inactivated Comments 02/10/2023 2:31 AM 02/11/2023 8:56 PM * Full Code Date Activated Date Inactivated Comments 02/09/2023 4:16 PM 02/10/2023 2:31 AM * Full Code Date Activated Date Inactivated Comments 02/09/2023 9:57 AM 02/09/2023 4:16 PM * Full Code Date Activated Date Inactivated Comments 08/23/2016 2:05 PM 08/25/2016 4:08 PM * Full Code Date Activated Date Inactivated Comments 08/23/2016 7:59 AM 08/23/2016 2:05 PM Care Teams Industrial Engineering Analyst Relationship Specialty Start Date End Date Marissa Mancia MD PCP - General Family Practice 01/16/18
--- OUTSIDE RECORDS SUMMARY | 2025-05-23 12:54 | XMS_ITS | Encounter Summary ---
Author Organization [facility] Address [address] [place] [address] Care Team Providers Care Hotel Associate Name Role Phone Marissa Mancia MD Primary Care Provider Encounter Details Date Type Department Care Team (Late st Contact Info) Description 06/01/1999 Outpatient Historical [facility] [place] 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
--- OUTSIDE RECORDS SUMMARY | 2025-05-23 12:54 | XMS_ITS | Encounter Summary ---
Author Organization [facility] Address [address] [place] [address] Care Team Providers Care Exhaust Machine Operator Name Role Phone Marissa Mancia MD Primary Care Provider Encounter Details Date Type Department Care Team (Late st Contact Info) Description 05/18/1999 Outpatient Historical [facility] [place] [phone] [address] Annette Quinones MD [address] [address] Social History Tobacco Use Types Packs/Day Years Used Date Smoking Tobacco: Never Assessed Comments Unknown Sex and Gender Information Value Date Recorded Sex Assigned at Not on file 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
[2025-05-23 12:59] VITALS: BP 132/91; PULSE 69; RESP 14; TEMP 36.6; O2SAT 100
--- NOTE | 2025-05-23 13:06 | ED_ITS ---
HPI - Skin/Abscess/Foreign Bdy General Chief complaint: Skin/Abscess/Foreign Body Stated complaint: swollen mole on lt hand Time Seen by Provider: 05/23/25 13:06 Source: patient Mode of arrival: ambulatory Limitations: no limitations History of Present Illness HPI narrative: 40 yo F presents with c/o infection to L hand. Has had mole to L hand For almost her entire life. Reports recent blister with redness starting right next to mold. Popped open and draining. Worsening of pain and redness. Afebrile. Range of motion and distal neurovascularly intact. All systems reviewed and negative except as noted above. Related Data Home Medications ?Medication ?Instructions ?Recorded ?Confirmed ?Last Taken ?Type metformin 500 mg tablet 500 mg PO BID 02/17/22 06/25/22 02/17/22 09:00 History lisdexamfetamine 20 mg capsule 20 mg PO DIRECTED 06/25/22 06/25/22 Unknown History (Vyvanse) progesterone micronized 200 mg 20 mg PO DIRECTED 06/25/22 06/25/22 Unknown History capsule estradiol 0.0375 mg/24 hr 05/23/25 Unknown History semiweekly transdermal patch Allergies Allergy/AdvReac Type Severity Reaction Status Date / Time Penicillins Allergy Mild Rash Verified 05/23/25 13:00 [facility] Past Medical History Medical History (Updated 05/23/25 @ 13:13 by Cathryn Robison NP) PCOS (polycystic ovarian syndrome) Family History Family History Grandparent Diabetes mellitus Breast cancer Heart disease Colon cancer Mother Hypertension Social History Social History Smoking status: Never smoker Alcohol intake: never Substance use: never Spiritual care concerns: No Comments At time of signature, agree with nursing past medical, surgical, social and family history. There is no relevant family history pertinent to the presenting complaint. Exam Narrative: GENERAL: This is a well-nourished, well-developed patient, in no apparent distress. HEAD: normocephalic, atraumatic. EYES: PERRL. Sclera clear/white. Vision is grossly intact. EARS: External ears normal, auditory canals clear and without drainage, TMs normal without perforation. Hearing grossly intact. NOSE: External nose normal with no obvious nasal discharge, nares without redness, no rhinorrhea. THROAT: Mucous membranes moist, posterior pharynx clear. NECK: Neck supple, non-tender without lymphadenopathy, masses or thyromegaly. CARDIOVASCULAR: Regular rate and rhythm without murmurs, gallops, or rubs. RESPIRATORY: Clear to auscultation. Breath sounds equal bilaterally. No wheezes, rales, or rhonchi. SKIN: warm, Dry, intact with no suspicious rash, good texture and turgor. Patient has a light brown, pencil eraser size small to dorsal aspect left hand with opened blister approximately 1 cm diameter weeping clear fluid Right next to will. Surrounding 1 cm diameter erythema is in additional 2-3 cm light pink. There is mild swelling. Tenderness on palpation. No fluctuance concerning for abscess. NEURO: awake, alert, and oriented to person, place and time. There were no obvious focal neurologic abnormalities. EXTREMITIES: No joint tenderness, effusion, or edema noted. Course Course Level of Care: Express Care Visit Vital Signs Vital signs: Vital Signs Temperature 36.6 C 05/23/25 12:59 Pulse Rate 69 05/23/25 12:59 Respiratory Rate 14 05/23/25 12:59 Blood Pressure 132/91 H 05/23/25 12:59 Pulse Oximetry 100 05/23/25 12:59 Oxygen Delivery Room Air 05/23/25 12:59 Temperature 36.6 C 05/23/25 12:59 Pulse Rate 69 05/23/25 12:59 Respiratory Rate 14 05/23/25 12:59 Blood Pressure 132/91 H 05/23/25 12:59 Pulse Oximetry 100 05/23/25 12:59 Oxygen Delivery Room Air 05/23/25 12:59 Reviewed MDM - Skin/Abscess/Foreign Bdy MDM Narrative Medical decision making narrative: will treat infection to left hand with cephalexin. Recommend patient follow-up with dermatology if not improving. Discharge Plan Discharge Clinical Impression: Cellulitis of hand, left Patient Disposition: Home Condition: Stable Instructions: Antibiotic Form, Cellulitis (ED) Additional Instructions: Take antibiotic as prescribed until gone. Follow up with terrazzo grinder if not improving. Patient Language: [place] Prescriptions: New cephalexin 500 mg capsule 500 mg PO Q8H 7 Days Qty: 21 0RF fluconazole 150 mg tablet 150 mg PO ONCE 1 Days Qty: 1 0RF No Action estradiol 0.0375 mg/24 hr patch semiweekly progesterone micronized 200 mg capsule 20 mg PO DIRECTED Vyvanse 20 mg capsule 20 mg PO DIRECTED metformin 500 mg Tablet 500 mg PO BID Follow-up/Referrals: DERRICK,KEYSHAWN DON [Primary Care Provider] - Time of Disposition: 13:14
== END 2025-05-23 13:17 | disposition home or self-care (01) ==
PROVIDERS: Emergency Provider Nurse Practitioner Family; PCP Nurse Practitioner Family
DX: L03.114 Cellulitis of left upper limb (principal)
CPT/HCPCS: 99213; G0463